=== PATIENT | female | born 1985 | race Two or more races ===

== ENCOUNTER 2021-06-14 19:37 | Emergency (ER) | payer OTHER ==
[~2021-06-14] VITALS: Ht 170.2 cm; Wt 75.7 kg
[2021-06-14] MEDS ORDERED: WELLBUTRIN SR200 MG (20:12)
[2021-06-14] MEDS ORDERED: LEXAPRO20 MG (20:12)
== END 2021-06-14 22:35 | disposition home or self-care (01) ==
LOC: ER 19:37
DX: N83.202 Unspecified ovarian cyst, left side (principal); R10.2 Pelvic and perineal pain; R55 Syncope and collapse